=== PATIENT | female | born 1990 | race Two or more races ===

== ENCOUNTER 2018-09-03 13:35 | Observation (INO) | payer MEDICAID ==
[~2018-09-03] VITALS: Ht 149.9 cm; Wt 56.2 kg
[~2018-09-03 13:35] MED LIST: NORPTMEDS CO; PREN-96 PO
== END 2018-09-03 14:30 | disposition home or self-care (01) | DRG 566 ==
LOC: LDRP 13:35
PROVIDERS: ADMIT Obstetrics & Gynecology; ATTEND Obstetrics & Gynecology
DX: O26.852 Spotting complicating pregnancy, second trimester (principal); O26.892 Other specified pregnancy related conditions, second trimester; F14.90 Cocaine use, unspecified, uncomplicated; N89.8 Other specified noninflammatory disorders of vagina; O99.322 Drug use complicating pregnancy, second trimester; Z87.891 Personal history of nicotine dependence; Z3A.25 25 weeks gestation of pregnancy
CPT/HCPCS: 59025; 81002; G0378

== ENCOUNTER 2019-08-02 08:03 | Emergency (ER) | payer MEDICAID ==
[~2019-08-02] VITALS: Ht 149.9 cm; Wt 49.9 kg
[~2019-08-02 08:03] MED LIST changes: -NORPTMEDS CO
[2019-08-02 08:14] VITALS: BP 117/71
== END 2019-08-02 08:33 | disposition home or self-care (01) ==
LOC: ER 08:03
DX: J02.9 Acute pharyngitis, unspecified (principal); J06.9 Acute upper respiratory infection, unspecified